=== PATIENT | female | born 1955 | race Caucasian/White ===

== ENCOUNTER 2025-04-04 09:17 | Emergency (ER) | payer MEDICARE, SELFPAY ==
[2025-04-04 09:26] VITALS: PULSE 103; RESP 20; O2SAT 98; BMI 50.3
[2025-04-04 09:40] VITALS: BP 161/73; PULSE 92; RESP 16; TEMP 37.1; O2SAT 100
[2025-04-04 09:59] VITALS: PULSE 90
--- NOTE | 2025-04-04 10:03 | EKG_ITS ---
[facility] Test Date: 2025-04-04 Pat Name: MAX TRIPATHI Department: Room: - Gender: Female [employer] En[employer]ment Assistant: : 1955 Requested By: Rivera Alaniz Order Number: [id number] Reading MD: Rivera Alaniz Measurements Intervals [place] Rate: 82 P: 54 CA: 143 QRS: 40 QRSD: 78 T: 88 QT: 326 QTc: 382 Interpretive Statements SINUS RHYTHM NONSPECIFIC T-WAVE ABNORMALITY No previous ECG available for comparison /store/S0/[id number]/[id number].pdf
--- NOTE | 2025-04-04 10:03 | EDNOTE_ITS ---
ED General RME/HPI General Chief complaint: Shortness of Breath/Dyspnea Stated complaint: SOB Time Seen by Provider: 04/04/25 10:03 Arrival date/time: 04/04/25 09:17 RME / HPI RME / HPI narrative: DR. ALANIZ MAIN ED EVALUATION: 69-year-old female with history of schizophrenia, frequent UTI's, and chronic leg edema presents after a fall at 8:30 AM, landing on a carpeted floor. History obtained from caregiver/niece due to patient?s inability to provide details; history of schizophrenia. Fall was preceded by weakness in both legs; unclear if anxiety or weakness was the cause of the fall; caregiver states that she might also have an UTI. Patient now reports bilateral knee pain, continued leg weakness, and shortness of breath. No fever, chills, or other symptoms reported at this time. Related Data Allergies Allergy/AdvReac Type Severity Reaction Status Date / Time No Known Allergies Allergy Verified 04/04/25 09:42 Review of Systems Review of Systems Systems Reviewed: All systems reviewed, normal except as documented Past Medical History Past Medical History CARDIAC: Positive Edema and Hypertension RESPIRATORY: Positive Chronic Obstructive Pulmonary Disease (COPD) ENDOCRINE: Positive Hyperthyroidism PSYCHO/SOCIAL: Positive Schizophrenia, Depression, Anxiety, Behavior Problems, Self-Mutilation and Post Traumatic Stress Disorder Social History SMOKING STATUS: Never smoker SUBSTANCE USE: does not use ALCOHOL: Never ED Exam Narrative Physical exam: Physical Exam: General: The vital signs were reviewed. Patient reported to have O2 sats of 88% prior to arrival but now other 96% on room air she is a morbidly obese cordial cannot provide much historical information and most information provided by the caregiver family member present at bedside. The patient is non-toxic, in no apparent distress and appears healthy with a patent airway, no respiratory distress and has no apparent circulatory problems. Head & Scalp: Normocephalic, atraumatic. Face: Appears normal and is without lesions, deformity. Ears: Left external pinna appears normal. Right external pinna appears normal. Eyes: The sclera is anicteric. No obvious photophobia. The Left and Right Orbit/Lid/Conjunctiva appears normal without swelling, discoloration or injection. Nose: The nose is without deformity, discharge or tenderness; Throat: Appears normal. The mucous membranes are pink and moist without exudates, redness or mass seen. The tongue appears normal. Neck: The neck is supple and no apparent mass or adenopathy. Chest: The chest wall is normal in size and symmetry and has no chest wall tenderness or crepitus. The patient displays normal ventilator effort without retractions, accessory muscle use and has adequate air movement bilaterally with no wheezes and no rales. Cardiovascular: Regular rate and rhythm; No murmurs, rubs, or gallops; Gastrointestinal: The abdomen appears grossly obese No obvious hernias or mass. The abdomen is soft and benign, non-distended, with no pain, no guarding and no rebound tenderness. Bowel sounds are present and normal sounding. No CVA tenderness. Genitourinary: Back/Spine: No obvious tenderness. Extremities/Musculoskeletal/lymphatic: The bilateral upper and lower extremities are warm. There is no evidence of arterial insufficiency. There is no evidence of venous insufficiency/edema. Very large obese legs no obvious ecchymosis trauma or laceration. She moves her knees with passive range of motion without any hesitancy. The patient spontaneously moves bilateral upper and lower extremities with no pain and no limitation of movement. There is no apparent, injury or trauma. Skin: The skin is warm, dry and intact. No rashes. No petechia. No purpura. No abnormal bruising. The color is appropriate with no cyanosis. Mental status/Psychiatric: Mental status is appropriate for age. The patient has no apparent delusions, visual hallucinations, no apparent audible hallucinations. The patient has no apparent suicidal thoughts/ideation and no apparent homicidal thoughts/ideation. Neurological: The patient is awake, alert, interactive, cordial, cooperative and is oriented to name and situation. The patient follows commands and answers historical question with no impairment. There is no visual disturbance apparent. The pupils are equal and reactive bilaterally with normal eye movements and no diplopia The bilateral upper and lower extremities have normal strength, normal range of motion and normal functioning. The gait, station and balance were not tested due to acuity. Course Quality Measures none Orders Category Date Time Status Bedside Blood Glucose NOW Care 04/04/25 10:03 Completed EKG (ED ONLY) *Do not use* NOW Care 04/04/25 10:03 Completed Miscellaneous Nursing Order NOW Care 04/04/25 14:[address] head/brain wo con Stat Exams 04/04/25 10:03 Completed EKG (ED Only) Stat Exams 04/04/25 10:03 Draft XR chest 1V portable Stat Exams 04/04/25 10:03 Completed Alcohol, Blood Medical Stat Lab 04/04/25 10:17 Completed Ammonia Stat Lab 04/04/25 10:17 Completed B-Type Natriuretic Peptide Stat Lab 04/04/25 10:17 Completed Blood Culture (Lab) Stat Lab 04/04/25 10:17 Received CBC Stat Lab 04/04/25 10:17 Completed Comprehensive Metabolic Panel Stat Lab 04/04/25 10:17 Completed Drug Screen,Urine Stat Lab 04/04/25 10:12 Completed Lactate (Lactic Acid) Stat Lab 04/04/25 10:17 Completed Procalcitonin Stat Lab 04/04/25 10:17 Completed Prothrombin Time with INR Stat Lab 04/04/25 10:17 Completed Troponin I Stat Lab 04/04/25 10:17 Completed Urinalysis Stat Lab 04/04/25 10:12 Completed Urinalysis, C/S if Indicated Stat Lab 04/04/25 10:12 Completed Venous Blood Gas Stat Lab 04/04/25 10:17 Completed Vital Signs Vital signs: Vital Signs Temperature 98.7 F 04/04/25 09:40 Pulse Rate 92 04/04/25 09:40 Respiratory Rate 16 04/04/25 09:40 Blood Pressure 161/73 H 04/04/25 09:40 Pulse Oximetry (%) 100 04/04/25 09:40 Oxygen Delivery Method Nasal Cannula 04/04/25 09:40 Oxygen Flow Rate 6 04/04/25 09:40 Discharge Plan Plan Patient Disposition: HOME (Self Care) Prescriptions/Referrals Referrals: Bhumi Jenkins FNP [Primary Care Provider] - In 1 week Problem List Clinical Impression: Weakness, Hx of psychosis Patient/Caregiver Discharge Instructions Additional Instructions: Make sure patient drinks plenty of clear liquids and water as she may be slightly dehydrated from her camping trip otherwise the rest of her labs are unremarkable. Return if getting worse and monitor for any anxiety symptoms. Print Language: [place] Stand Alone Forms: Patient Portal Info Letter MDM Narrative [facility] hospital course: I, Ariadna Giordano, am scribing for and in the presence of Dr. Alaniz. Patient is here because she was weaker than her baseline fell no obvious significant injury had a history of urine infections and similar bouts in the past with urine infections. She just traveled to [facility] and evidently did well at the elevation there. I will do a medical workup for acute weakness leading to fall and get a catheter urine as part of the workup. The medical workup came back essentially negative besides some mild hypertension she does have a mild anemia with a hemoglobin of 10.1 PT/INR within normal limits. BUN was 29 slightly elevated from the normal baseline. Creatinine was 1.1 lactic acid was 0.9 urine drug screen was negative. UA was negative. Head CT was negative chest x-ray was negative Patient found however felt that she might be dehydrated from going camping but she is drinking water without any problem. She is also walking without any problem. And there is also a lot of anxiety may be associated with this which may have made her weak transiently but now she is fine and they were reassured and noted return if getting worse in any way. At 321 PM, patient passed the road test and will be discharged. Clinical Information Provided by patient other: caregiver/niece Medical Records Reviewed None Meds/Rx Considered, not Ordered None Labs/Rad/Tests considered, not Ordered None Chronic Illness/Social Conditions Add or document further as needed: schizophrenia, frequent UTI's, and chronic leg edema EKG EKG Interpretation narrative: My interpretation: EKG performed at 1109 hours, sinus rhythm, rate 82, no STEMI Lab Interpretation Labs: see narrative above Imaging Imaging interpretation: see narrative above Radiology reports / interpretation(s): Procedure(s): XR chest 1V portable Accession Number(s): [id number] cc: Bhumi Jenkins; Rivera Alaniz MD; Faheem Mendoza MD~ Examination: AP chest single view TECHNIQUE: AP portable semiupright chest single view Date and time: April 04, 2025 1030 hours INDICATIONS: Chest pain today shortness of breath FINDINGS: Mild large and cardiac contour Mild to moderate vascular congestion Normal lumbar pneumonia or pulmonary edema Intact osseous structures IMPRESSION: Mild to moderate vascular congestion Dictated By: Faheem Mendoza MD -- Procedure(s): CT head/brain wo con Accession Number(s): [id number] cc: Bhumi Jenkins; Rivera Alaniz MD; Faheem Mendoza MD~ Examination: CT brain head without contrast. 2-D sagittal coronal reconstructions Date and time of exam:April 04, 2025, 10:45 AM INDICATIONS: Loss of consciousness episode this morning CTDI: vol (mGy):64.3 DLP: (mGycm):1316 Technique: Multiple CT axial sections of the brain have been obtained, 5 mm slice thickness. Contrast has not been administered. 2-D sagittal, coronal reconstructions have been obtained Low dose protocols were performed. One or more of the following dose reduction techniques were used; automated exposure control, adjustment of the mA and/or KV according to patient size, use of iterative reconstruction technique. Findings: No significant ventricular enlargement. Intra-axial or extra-axial hemorrhage density is not seen. No mass effect or midline shift Basal cisterns are not remarkable. Fourth ventricle is midline. Cranial vault intact. Impression: Negative for acute hemorrhage, mass effect or midline shift Dictated By: Faheem Mendoza MD Diagnosis Differential dx and/or dx ruled out: mechanical fall, osteoarthritis exacerbation, UTI-related weakness versus cardiopulmonary cause of dyspnea Most likely dx, and/or detailed dx discussion: Weakness Hx of psychosis Dispositon Disposition: Discharge Home
[2025-04-04 10:35] LABS: Collection Type, Urine Catheter
[2025-04-04 10:38] LABS: Base Excess, Venous 2 (-3-3); Lactate (Lactic Acid) 0.9 mMol/L (0.4-2.0); O2 Saturation, Venous 91 % (96-97); PCO2, Venous 44 mmHg (36-56); PO2, Venous 61 mmHg (15-58); pH, Venous 7.40 (7.33-7.66)
[2025-04-04 10:39] LABS: Basophils # (Auto) 0.0 Thou/mm3 (0.0-0.2); Basophils % (Auto) 0 % (0-2.5); Eosinophils # (Auto) 0.2 Thou/mm3 (0.0-0.5); Eosinophils % (Auto) 2 % (0-10); Hematocrit 33.6 % (36.0-46.0); Hemoglobin 10.1 g/dL (12.0-16.0); Immature Granulocytes Auto 0.08 Thou/mm3 (0.00-0.00); Lymphocytes # (Auto) 1.3 Thou/mm3 (1.0-4.8); Lymphocytes % (Auto) 14 % (10-50); Mean Corpuscular HGB Conc 30.1 g/dl (31.0-37.0); Mean Corpuscular Hemoglobin 26.7 pg (25.0-35.0); Mean Corpuscular Volume 89 fL (80-100); Monocytes # (Auto) 0.9 Thou/mm3 (0.0-0.8); Monocytes % (Auto) 9 % (0-12); Neutrophils # (Auto) 6.7 Thou/mm3 (1.8-7.7); Neutrophils % (Auto) 73 % (37-80); Nucleated Red Blood Cell # 0.02 Thou/mm3 (0.00-0.00); Nucleated Red Blood Cell % 0 /100 WBC (0); Platelet Count 267 Thou/mm3 (140-440); RDW Standard Deviation 53.2 fL (36.4-46.3); Red Blood Count 3.78 Miln/mm3 (4.00-5.20); White Blood Count 9.2 Thou/mm3 (3.6-11.0)
[2025-04-04 10:50] LABS: Bilirubin,Urine Negative (Negative); Blood,Urine Negative (Negative); Clarity,Urine Clear (Clear/Hazy); Color,Urine Lt-Yellow (Lt Yel-Yel); Culture Indicated,Urine Not Indicated; Glucose, Urine Negative (Negative); Ketones,Urine Negative (Negative); Leukocyte Esterase,Urine Positive (Negative); Nitrite,Urine Negative (Negative); PH,Urine 5.0 (5.0-7.0); Protein,Urine Negative (Neg - Trace); RBC,Urine 1 /hpf (0-3); Specific Gravity,Urine 1.020 (1.001-1.035); Squamous Epithelial Cell,Urine 1 /hpf (0-5); Urobilinogen,Urine Negative mg/dL (0.0-1.0); WBC,Urine 2 /hpf (0-5)
[2025-04-04 10:57] LABS: INR 1.0 (0.9-1.3); Prothrombin Time 11.3 Seconds (9.0-12.2)
[2025-04-04 10:58] LABS: B-Type Natriuretic Peptide 54 pg/mL (0-100)
[2025-04-04 11:03] LABS: Ammonia < 10 uMol/L (11-32)
[2025-04-04 11:10] LABS: Alanine Aminotransferase 19 U/L (10-49); Albumin, Serum 4.0 gm/dL (3.4-4.8); Albumin/Globulin Ratio 1.9 (1.2-2.2); Alcohol, Blood Medical < 3.0 mg/dL (0-10.0); Alkaline Phosphatase 90 U/L (46-116); Anion Gap 8 (7-16); Aspartate Amino Transferase 16 U/L (0-34); BUN/Creatinine Ratio 26 Ratio (12-20); Bilirubin,Total 0.2 mg/dL (0.3-1.2); Blood Urea Nitrogen 29 mg/dL (9-23); Calcium 8.7 mg/dL (8.3-10.6); Calcium (Corrected) 8.7 mg/dL (8.5-10.1); Carbon Dioxide 27.8 mMol/L (20.0-31.0); Chloride 107 mMol/L (98-107); Creatinine (Component) 1.1 mg/dL (0.6-1.3); Estimated Creatinine Clearance 55.7 mL/min (>60); Globulin 2.1 gm/dL (2.3-3.5); Glucose 133 mg/dL (74-106); Osmolality,Calculated 292 (275-295); Potassium 4.8 mMol/L (3.4-5.1); Procalcitonin 0.07 ng/ml (0.0-0.49); Sodium 143 mMol/L (136-145); Total Protein 6.1 gm/dL (5.7-8.2); Troponin I < 0.020 ng/mL (0.0-0.045); eGFR 54 See Note
[2025-04-04 11:23] LABS: Amphetamine/Methamp Scrn,U Negative (Negative); Barbiturate Screen,Urine Negative (Negative); Benzodiazepines Screen,Urine Negative (Negative); Benzoylecgonine Screen, Ur Negative (Negative); Fentanyl Screen,Urine Negative (Negative); Opiate Screen,Urine Negative (Negative); THC Screen,Urine Negative (Negative)
[2025-04-04 12:42] VITALS: BP 138/86; PULSE 81; RESP 20; O2SAT 90
[2025-04-04 15:33] VITALS: BP 170/86; PULSE 78; RESP 20; O2SAT 99
== END 2025-04-04 15:35 | disposition home or self-care (01) ==
PROVIDERS: Emergency Provider Emergency Medicine; PCP Nurse Practitioner
DX: R53.1 Weakness (principal); D64.9 Anemia, unspecified; R06.02 Shortness of breath; M25.561 Pain in right knee; M25.562 Pain in left knee; F20.9 Schizophrenia, unspecified; I10 Essential (primary) hypertension; J44.9 Chronic obstructive pulmonary disease, unspecified; E05.90 Thyrotoxicosis, unspecified without thyrotoxic crisis or storm; E66.01 Morbid (severe) obesity due to excess calories; Z68.43 Body mass index [BMI] 50.0-59.9, adult; Z87.440 Personal history of urinary (tract) infections; W19.XXXA Unspecified fall, initial encounter
CPT/HCPCS: 36415; 70450; 71045; 80053; 80307; 80320; 81001; 82140; 82803; 83605; 83880; 84145; 84484; 85025; 85610; 87040; 93005; 99283; G0480

== ENCOUNTER → 2025-06-03 | Outpatient (CLI) | payer MEDICARE, MEDICAID, SELFPAY ==
--- NOTE | 2025-06-03 16:15 | XR_ITS ---
Examination: Screening digital mammography, bilateral Computer aided detection 3-D breast Tomosynthesis, bilateral Date and time of exam: June 03, 2025, 1644 hours, no priors Indication: Screening Technique: Nonmagnified MLO, CC views of the breasts to been obtained, reconstructed from 3-D Tomosynthesis images. R2 computer aided detection program utilized for evaluation of suspicious masses and/or abnormal calcifications. 3-D Tomosynthesis images obtained. Findings: Scattered areas of fibroglandular density. Benign calcifications. No suspicious masses Mildly prominent right axillary lymph node Impression: BI-RADS Category 0: Incomplete: Need additional imaging evaluation Recommend right breast sonography follow-up to document benign right axillary lymph nodes
--- NOTE | 2025-06-03 16:31 | XR_ITS ---
Examination: Knee bilateral, 6 views Technique: Knee AP, lateral, oblique each knee total 6 views Date and time of exam: May,-5169 6 hours INDICATION: Bilateral knee pain beginning 2 years ago. FINDINGS: Significant osteopenia Bilateral moderate to advanced narrowing medial joint spaces more severe left knee Bilateral moderate osteoarthritis patellofemoral joints No fractures IMPRESSION: Osteoarthritis as above, including bilateral moderate to advanced narrowing medial joint spaces, more severe left knee
== END | disposition home or self-care (01) ==
PROVIDERS: PCP Internal Medicine; Referring Provider Internal Medicine; Visit Provider Internal Medicine
DX: Z12.31 Encounter for screening mammogram for malignant neoplasm of breast (principal); R92.8 Other abnormal and inconclusive findings on diagnostic imaging of breast; M17.0 Bilateral primary osteoarthritis of knee; M25.862 Other specified joint disorders, left knee; M25.861 Other specified joint disorders, right knee
CPT/HCPCS: 73562; 77063; 77067